=== PATIENT | female | born 1950 | race Caucasian/White ===

== ENCOUNTER 2021-08-19 21:11 | Emergency (ER) | payer OTHER ==
[~2021-08-19] VITALS: Ht 180.3 cm; Wt 108.9 kg
[2021-08-19 23:58] VITALS: BP 146/74
== END 2021-08-20 00:06 | disposition home or self-care (01) ==
LOC: ER 21:11
DX: S80.12XA Contusion of left lower leg, initial encounter (principal); W22.8XXA Striking against or struck by other objects, initial encounter; Y93.89 Activity, other specified; Y92.89 Other specified places as the place of occurrence of the external cause; Y99.8 Other external cause status
CPT/HCPCS: 73590

== ENCOUNTER 2025-02-04 03:29 | Emergency (ER) | payer OTHER ==
--- NOTE | 2025-02-04 05:23 | DVH ---
EXAMINATION: XY L RIB X RAY INDICATION: injury and pain COMPARISON: None TECHNIQUE: 5 views FINDINGS: No visualized rib fracture. Compression deformities of lower thoracic and lumbar vertebrae, estimated at the levels of T10, L1 and L5, with varying degrees of height loss. No focal consolidation, pleural effusion or pneumothorax. Left basilar opacity appears most consistent with scarring/atelectasis. Normal heart size. Unremarkable visualized abdominal contents. IMPRESSION: 1. No evidence of a displaced rib fracture or acute cardiopulmonary abnormality. 2. Age indeterminate thoracolumbar vertebral compression deformities, correlate with physical exam and any available prior imaging.
--- NOTE | 2025-02-04 05:42 | ED.PDOC ---
Back pain HPI HPI Comments Pt presents with cc of left lateral rib pain. Pt states 1 week ago she fell, hitting her left ribs on a table. Pt states the pain is worse with movement and breathing. Pain gets up to a 10/10 with movement Chief Complaint: Rib Pain Time Seen by MD: 04:10 Primary Care Provider: Gabe Reyes Notes: Nurses Notes, Medications, Allergies Allergies: Coded Allergies: Aspirin (Verified Allergy, Unknown, 02/04/25) Codeine (Verified Allergy, Unknown, 02/04/25) Hydrocodone (Verified Allergy, Unknown, 02/04/25) Morphine (Verified Allergy, Unknown, 02/04/25) Sulfa Antibiotics (Verified Allergy, Unknown, 02/04/25) Home Meds Active Scripts Lidocaine (Lidocaine Patch 5%) 5 % Pad, 5 % EX DAILY, #30 PAD Prov:RAMU SIERRA 02/04/25 Information Source: Patient Mode of Arrival: Wheelchair Timing: Days Duration: Since onset, Days Location of Back pain: Other (LEFT RIBS PAIN ) Severity: Moderate Quality: Aching, Cramping Onset: Other (HIT THE TABLE ) Modifying Factors: Movement, Twisting Associated signs and symptoms: None Past Medical History PAST MEDICAL HISTORY: Denies Surgical History: Denies all surgeries BOX STRAPPER History: No Pertinent BOX STRAPPER History Family History Family History: No family hx of Cancer, No family hx of DM, No family hx of Heart juli Social History Smoker: Non-Smoker Alcohol: Occasionally Drugs: Denies Drug Use Lives In: Home Constitutional: denies: chills, diaphoresis, fatigue, fever, malaise, sweats, weakness, others EENTM: denies: blurred vision, double vision, ear bleeding, ear discharge, ear drainage, ear pain, ear ringing, eye pain, eye redness, hearing loss, mouth alexandra n, mouth swelling, nasal discharge, nose bleeding, nose congestion, nose pain, photophobia, tearing, throat pain, throat swelling, voice changes, others Respiratory: denies: cough, hemoptysis, orthopnea, SOB at rest, shortness of breath, SOB with excertion, stridor, wheezing, others Cardiovascular: denies: chest pain, dizzy spells, diaphoresis, Dyspnea on exertion, edema, irregular heart beat, left arm pain, lightheadedness, palpitations, PND, syncope, others Gastrointestinal: denies: abdomen distended, abdominal pain, blood streaked bowels, constipated, diarrhea, dysphagia, difficulty swallowing, hematemesis, melena, nausea, poor appetite, poor fluid intake, rectal bleeding, rectal pain, vomiting, others Genitourinary: denies: abnormal vagina bleeding, burning, dyspareunia, dysuria, flank pain, frequency, hematuria, incontinence, pain, , vagina discharge, urgency, others Neurological: denies: dizziness, fainting, headache, left sided numbness, left sided weakness, numbness, paresthesia, pre-existing deficit, right sided numbness, right sided weakness, seizure, speech problems, tingling, tremors, weakness, others Musculoskeletal: reports: muscle pain (LEFT POSTERIOR MIDDLE RIBS ), others (L RIB PAIN); denies: back pain, gout, joint pain, joint swelling, muscle stiffness, neck pain Integumetry: denies: bruises, change in color, change in hair/nails, dryness, laceration, lesions, lumps, rash, wounds, others Allergic/Immunocompromised: denies: Difficulty Healing, Frequent Infections, Hives, Itching, others Hematologic/Lymphatic: denies: anemia, blood clots, easy bleeding, easy bruising, swollen glands, others Endocrine: denies: excessive hunger, excessive sweating, excessive thirst, excessive urination, flushing, intolerance to cold, intolerance to heat, unexplained weight gain, unexplained weight loss, others Psychiatric: denies: anxiety, bipolar disorder, depression, hopeless, panic disorder, schizophrenia, sleepless, suicidal, others All Other Systems: Reviewed and Negative (see hpi) Physical Exam General Appearance: No Apparent Distress, Normal HEENT: PERRL/EOMI, Pharynx Normal Neck: Full Range of Motion, Non-Tender Respiratory: Lungs Clear, No Accessory Muscle Use, No Respiratory Distress, Normal Breath Sounds, Other (Along right lateral ribcage no noted crepitus) Cardiovascular: No Edema, No JVD, No Murmur, No Gallop, Normal Peripheral Pulses, Regular Rate/Rhythm Breast Exam: Deferred Gastrointestinal: No Organomegaly, Non Tender, No Pulsatile Mass, Normal Bowel Sounds, Soft Genitalia: Deferred Pelvic: Deferred Rectal: Deferred Extremities: Normal capillary refill, Normal inspection, Normal range of motion, Non-tender Musculoskeletal : Location: Left Apperance: Tenderness (AND MUSCLE SPASM ON LEFT POSTERIOR MIDDLE RIBS, NO BONY TENDERNESS AND SWELLING, NO DEFORMITY. ) Neurologic: Alert, No Motor Deficits, Normal Affect, Normal Mood, No Sensory Deficits Cerebellar Function: Normal Reflexes: Normal Skin: Dry, Normal Color, Warm Peripheral Pulses: 2+ carotid (R), 2+ carotid (L) Lymphatic: No Adenopathy Was a procedure done? Was a procedure done?: No Back Pain Differential Dx Differential Diagnosis: Fracture, Musculoskeletal Pain, Strain X-Ray, Labs, Meds, VS Vital Signs Date Time Temp Pulse Resp B/P (MAP) Pulse Ox O2 Delivery O2 Flow Rate FiO2 02/04/25 07:32 97.7 96 16 133/72 (92) 96 97.7 02/04/25 03:31 98.0 86 20 167/[address] [address] Ph: [phone] DIAGNOSTIC IMAGING Diagnostic Imaging Report : [id number] Signed PATIENT: HOMAR LAY ACCT: [id number] UNIT: [id number] : 1950 LOC: ER ROOM / BED: / AGE / SEX: 74 / F ADM STATUS: REG ER SERVICE [id number] ORDERING PHYSICIAN: LUIS ARMANDO CABRERA PROCEDURE(s): ABPL - CT AB PEL WO CON-NO ORAL OR IV REASON: left flank pain ORDER NUMBER(s): [id number], ACCESSION NUMBER(s): [id number] MEDICAL RECORDS NUMBER: [id number] PROCEDURE: CT CT AB PEL WO CON-NO ORAL OR IV DATE: 02/04/2025 06:13 AM HISTORY: left flank pain TECHNIQUE: CT of the abdomen and pelvis is performed without IV contrast. CONTRAST: none Oral Contrast: No oral contrast was utilized. COMPARISON: None RADIATION DOSE INFORMATION: Automated exposure control dose reduction techniques were used. FINDINGS: Lung bases: Limited evaluation of the lung bases demonstrates minor chronic changes. Mediastinum:Lower mediastinal structures appear unremarkable. Liver: The liver is normal in size. There is no focal liver lesion. Biliary ducts: There is no evidence of intrahepatic or extrahepatic biliary ductal dilatation. Gallbladder: No abnormality is seen of the gallbladder. Spleen: The spleen is normal in size without focal lesion. Stomach: The stomach appears unremarkable. Pancreas: The pancreas is unremarkable. Adrenal glands: The adrenal glands are unremarkable. Kidneys: The kidneys are normal in size and are symmetric. There is no evidence of hydronephrosis. No focal renal lesion is noted. Aorta and IVC: The aorta and IVC are patent and are normal in size. Mesenteric vessels: Major mesenteric vessels appear to be intact. Bowel: The visualized portions of the small and large bowel are normal in caliber. Appendix: The appendix is unremarkable. Pelvis: 8.5 cm cystic appearing mass is seen in the pelvis posterior to the uterus. This is centered to the left of the midline. This may arise from the left ovary. Neoplasm could be a concern. Further evaluation is needed. Lymph nodes: There is no evidence of lymphadenopathy. Osseous structures: The osseous structures are intact. No lytic or blastic osseous lesion is noted. Free fluid/free air: None IMPRESSION: 1. 8.5 cm cystic appearing mass is seen in the pelvis posterior to the uterus. This is centered to the left of the midline. This may arise from the left ovary . Neoplasm is a concern. Further evaluation is needed. ATED BY: SATYA OREILLY MD DICTATED DATE/TIME: 02/04/25647 SIGNED BY: SATYA OREILLY MD SIGNED DATE/TIME: 02/04/25647 CC: [place] [id number] Ph: [phone] DIAGNOSTIC IMAGING Diagnostic Imaging Report : [id number] Signed PATIENT: HOMAR LAY ACCT: [id number] UNIT: [id number] : 1950 LOC: ER ROOM / BED: / AGE / SEX: 74 / F ADM STATUS: REG ER SERVICE 0 ORDERING PHYSICIAN: LUIS ARMANDO CABRERA PROCEDURE(s): LRIBS - L RIB X RAY REASON: injury and pain ORDER NUMBER(s): [id number], ACCESSION NUMBER(s): [id number] EXAMINATION: XY L RIB X RAY INDICATION: injury and pain COMPARISON: None TECHNIQUE: 5 views FINDINGS: No visualized rib fracture. Compression deformities of lower thoracic and lumbar vertebrae, estimated at the levels of T10, L1 and L5, with varying degrees of height loss. No focal consolidation, pleural effusion or pneumothorax. Left basilar opacity appears most consistent with scarring/atelectasis. Normal heart size. Unremarkable visualized abdominal contents. IMPRESSION: 1. No evidence of a displaced rib fracture or acute cardiopulmonary abnormality. 2. Age indeterminate thoracolumbar vertebral compression deformities, correlate with physical exam and any available prior imaging. ATED BY: SATYA OREILLY MD DICTATED DATE/TIME: 02/04/25519 SIGNED BY: SATYA OREILLY MD SIGNED DATE/TIME: 02/04/25519 CC: X-Ray, Labs, Meds, VS Comment FINDINGS: No visualized rib fracture. Compression deformities of lower thoracic and lumbar vertebrae, estimated at the levels of T10, L1 and L5, with varying degrees of height loss. No focal consolidation, pleural effusion or pneumothorax. Left basilar opacity appears most consistent with scarring/atelectasis. Normal heart size. Unremarkable visualized abdominal contents. IMPRESSION: 1. No evidence of a displaced rib fracture or acute cardiopulmonary abnormality. 2. Age indeterminate thoracolumbar vertebral compression deformities, correlate with physical exam and any available prior imaging. 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 Rib x-ray show no acute fractures incidental finding of compression deformities at T10, L1 and L5. Patient without any pain on palpation along thoracic and lumbar spine. CT abdomen and pelvis for continued severe left flank pain. Patient care and Report given ROSIBEL Franklin at 6:[address] results Images Reviewed?: Images reviewed and evaluated by me Time of 1ST Reevaluation: 04:10 Reevaluation 1ST: Unchanged Time of 2ND Reevaluation: 05:38 Reevaluation 2ND: Improved Time of 3RD Reevaluation: 07:36 Reevaluation 3RD: Improved Patient Education/Counseling: Diagnosis, Treatment, Need For Follow Up Family Education/Counseling: Diagnosis, Treatment, Need For Follow Up Medical Screening: No EMC Exist At This Time SEPSIS Sepsis Screen Date sepsis recognized/suspect: Feb 04, 2025 Time Sepsis recognized/suspect: 0334 Recent Procedure: No On Antibiotic Therapy: No Respiratory Rate >20: No Heart Rate >90: No Temp<36 C (96.8 F) or >38.3 C: No SBP <90 or MAP <65 mmHG: No New Acute Mental Status Change: No Is the patient on CPAP, BIPAP,: No Physician Orders L Rib X Ray (02/04/25 04:11) Ct Ab Pel Wo Con-No Oral Or Iv (02/04/25 05:55) Vital Signs Date Time Temp Pulse Resp B/P (MAP) Pulse Ox O2 Delivery O2 Flow Rate FiO2 02/04/25 07:32 97.7 96 16 133/72 (92) 96 97.7 02/04/25 03:31 98.0 86 20 167/73 97 98.0 Departure 1 Departure Time of Disposition: 07:35 Impression: Primary Impression: Compression fracture of T10 vertebra Qualified Codes: S22.070A - Wedge compression fracture of T9-T10 vertebra, initial encounter for closed fracture Additional Impressions: Intercostal muscle strain Qualified Codes: S29.011A - Strain of muscle and tendon of front wall of thorax, initial encounter Left tubo-ovarian mass Disposition: HOME / SELF CARE / HOMELESS Condition: Stable Additional Instructions: F/U PCP/PLATE MOUNTER IN 2 DAYS RECHECK LEFT OVARIAN MASS. IF CONDITION BECOME WORSE, RETURN TO ED DE. e-Prescriptions Lidocaine (Lidocaine Patch 5%) 5 % Pad 5 % EX DAILY, #30 PAD Prov: RAMU SIERRA 02/04/25 Discharged With: Self, Spouse Critical Care Note Critical Care Time?: No Stability Stability form required: No Heart Score Heart Score: Heart Score Response (Comments) Value History N/A 0 EKG N/A 0 Age N/A 0 Risk Factors N/A 0 Troponin N/A 0 Total 0 I personally scribed for RAMU SIERRA ([email or web address]) on 02/04/25 at 07:21. Rosa ctronically submitted by Tomás Monte ([email or web address]). I personally scribed for RAMU SIERRA ([email or web address]) on 02/04/25 at 07:22. Electronically submitted by Tomás Monte ([email or web address]). LUIS ARMANDO CABRERA Feb 04, 2025 05:42 RAMU SIERRA Feb 04, 2025 07:21
--- NOTE | 2025-02-04 06:51 | DVH ---
MEDICAL RECORDS NUMBER: [id number] PROCEDURE: CT CT AB PEL WO CON-NO ORAL OR IV DATE: 02/04/2025 06:13 AM HISTORY: left flank pain TECHNIQUE: CT of the abdomen and pelvis is performed without IV contrast. CONTRAST: none Oral Contrast: No oral contrast was utilized. COMPARISON: None RADIATION DOSE INFORMATION: Automated exposure control dose reduction techniques were used. FINDINGS: Lung bases: Limited evaluation of the lung bases demonstrates minor chronic changes. Mediastinum:Lower mediastinal structures appear unremarkable. Liver: The liver is normal in size. There is no focal liver lesion. Biliary ducts: There is no evidence of intrahepatic or extrahepatic biliary ductal dilatation. Gallbladder: No abnormality is seen of the gallbladder. Spleen: The spleen is normal in size without focal lesion. Stomach: The stomach appears unremarkable. Pancreas: The pancreas is unremarkable. Adrenal glands: The adrenal glands are unremarkable. Kidneys: The kidneys are normal in size and are symmetric. There is no evidence of hydronephrosis. No focal renal lesion is noted. Aorta and IVC: The aorta and IVC are patent and are normal in size. Mesenteric vessels: Major mesenteric vessels appear to be intact. Bowel: The visualized portions of the small and large bowel are normal in caliber. Appendix: The appendix is unremarkable. Pelvis: 8.5 cm cystic appearing mass is seen in the pelvis posterior to the uterus. This is centered to the left of the midline. This may arise from the left ovary. Neoplasm could be a concern. Further evaluation is needed. Lymph nodes: There is no evidence of lymphadenopathy. Osseous structures: The osseous structures are intact. No lytic or blastic osseous lesion is noted. Free fluid/free air: None IMPRESSION: 1. 8.5 cm cystic appearing mass is seen in the pelvis posterior to the uterus. This is centered to the left of the midline. This may arise from the left ovary. Neoplasm is a concern. Further evaluation is needed.
[2025-02-04] MEDS ORDERED: LIDO5PAD12 EX (07:26)
[2025-02-04 07:32] VITALS: BP 133/72; PULSE 96; RESP 16; TEMP 97.7; O2SAT 96
== END 2025-02-04 07:37 | disposition home or self-care (01) ==
LOC: ER 03:29
DX: S22.070A Wedge compression fracture of T9-T10 vertebra, initial encounter for closed fracture (principal); S29.011A Strain of muscle and tendon of front wall of thorax, initial encounter; N83.9 Noninflammatory disorder of ovary, fallopian tube and broad ligament, unspecified; F10.90 Alcohol use, unspecified, uncomplicated; Z79.899 Other long term (current) drug therapy; Z88.6 Allergy status to analgesic agent; Z88.2 Allergy status to sulfonamides; Z88.5 Allergy status to narcotic agent; W22.03XA Walked into furniture, initial encounter; Y93.89 Activity, other specified; Y92.89 Other specified places as the place of occurrence of the external cause; Y99.8 Other external cause status
CPT/HCPCS: 71101; 74176